=== PATIENT | female | born 1990 | race Caucasian/White ===

== ENCOUNTER → 2021-06-20 | Outpatient (CLI) | payer BC | LOC: M LAB 17:05 | PROVIDERS: ATTEND Pediatrics | DX: N91.1 Secondary amenorrhea (principal) ==

== ENCOUNTER → 2021-06-22 | Outpatient (CLI) | payer BC | LOC: M LAB 11:48 | PROVIDERS: ATTEND Pediatrics | DX: N91.1 Secondary amenorrhea (principal) ==

== ENCOUNTER → 2021-07-27 | Outpatient (CLI) | payer BC ==
[2021-07-27 15:36] LABS: HEMATOCRIT 35.2 % (36.0-47.0); HEMOGLOBIN 11.9 g/dl (12.0-15.5); MEAN CORPUSCULAR HEMOGLOBIN 30.1 pg (27.0-33.0); MEAN CORPUSCULAR HGB CONC 33.8 g/dl (32.0-36.5); MEAN CORPUSCULAR VOLUME 88.9 fl (80.0-96.0); PLATELET COUNT, AUTOMATED 231 10^3/uL (150-450); RED BLOOD COUNT 3.96 10^6/uL (4.00-5.40); WHITE BLOOD COUNT 6.4 10^3/uL (4.0-10.0)
[2021-07-27 16:32] LABS: HEPATITIS C VIRUS ABY INDEX 0.1 INDEX (<0.8); HIV 1&2 SCREEN CENTAUR NEGATIVE (NEGATIVE)
[2021-07-27 17:09] LABS: GC DNA AMPLIFICATION NEGATIVE (NEGATIVE)
== END ==
LOC: M PLALAB 14:02
PROVIDERS: ATTEND Advanced Practice Midwife
DX: Z34.81 Encounter for supervision of other normal pregnancy, first trimester (principal)

== ENCOUNTER → 2021-07-28 | Outpatient (REF) | payer BC | LOC: M SFHCWAGY 16:43 | PROVIDERS: ATTEND Advanced Practice Midwife | DX: Z34.81 Encounter for supervision of other normal pregnancy, first trimester (principal); A56.8 Sexually transmitted chlamydial infection of other sites ==

== ENCOUNTER → 2021-08-17 | Outpatient (CLI) | payer BC | LOC: M LAB 17:02 | PROVIDERS: ATTEND Advanced Practice Midwife | DX: Z34.81 Encounter for supervision of other normal pregnancy, first trimester (principal) ==

== ENCOUNTER → 2021-08-30 | Outpatient (REF) | payer BC ==
[2021-08-30 15:10] LABS: GC DNA AMPLIFICATION NEGATIVE (NEGATIVE)
== END ==
LOC: M SFHCWAGY 13:06
PROVIDERS: ATTEND Obstetrics & Gynecology
DX: O98.812 Other maternal infectious and parasitic diseases complicating pregnancy, second trimester (principal); Z3A.00 Weeks of gestation of pregnancy not specified

== ENCOUNTER → 2021-09-16 | Outpatient (CLI) | payer BC ==
[2021-09-16 14:03] LABS: APPEARANCE, URINE CLEAR (CLEAR); BACTERIA, URINE AUTO NEGATIVE (NEGATIVE); BILIRUBIN, URINE AUTO NEGATIVE (NEGATIVE); BLOOD, URINE BLOOD NEGATIVE (NEGATIVE); COLOR, URINE YELLOW (YELLOW); GLUCOSE, URINE (UA) AUTO NEGATIVE (NEGATIVE); KETONE, URINE AUTO NEGATIVE (NEGATIVE); LEUKOCYTE ESTERASE, URINE AUTO NEGATIVE (NEGATIVE); NITRITE, URINE AUTO NEGATIVE (NEGATIVE); PROTEIN, URINE AUTO NEGATIVE (NEGATIVE); RBC, URINE AUTO 0 /HPF (0-3); SPECIFIC GRAVITY URINE AUTO 1.011 (1.002-1.035); SQUAMOUS EPITHELIAL CELL UR AU 2 /HPF (0-6); UROBILINOGEN, URINE AUTO 0.2 mg/dL (0.0-2.0); WBC, URINE AUTO 0 /HPF (0-3)
== END ==
LOC: M PLALAB 11:24
PROVIDERS: ATTEND Advanced Practice Midwife
DX: R30.0 Dysuria (principal)

== ENCOUNTER 2021-11-21 23:14 | Outpatient (CLI) | payer BC ==
[~2021-11-21] VITALS: Ht 160 cm; Wt 74.4 kg
[2021-11-21 23:24] VITALS: BP 129/73
[2021-11-21] MEDS ORDERED: TYLE650T38 PO (23:32)
[2021-11-21] MEDS ORDERED: HOME MED LIST COMPLETE! XX SCH (23:35)
[2021-11-21] MEDS ORDERED: cefTRIAXone SOD 1 GM in D5W MINI-BAG PLUS 50 ML IV ONE (23:45)
[2021-11-21] MEDS ORDERED: LR 1,000 ML IV ONE (23:45)
[2021-11-22 00:59] LABS: APPEARANCE, URINE MANUAL CLOUDY (CLEAR)
[2021-11-22 01:00] LABS: BILIRUBIN, URINE MANUAL NEGATIVE (NEGATIVE); BLOOD URINE MANUAL POSITIVE (NEGATIVE); COLOR, URINE MANUAL PINK (YELLOW); GLUCOSE, URINE (UA) MANUAL NEGATIVE (NEGATIVE); KETONE, URINE MANUAL NEGATIVE (NEGATIVE); LEUKOCYTE ESTERASE, URINE MAN POSITIVE (NEGATIVE); NITRITE, URINE MANUAL NEGATIVE (NEGATIVE); PROTEIN, URINE MANUAL 2+ mg/dL (NEGATIVE); UROBILINOGEN, URINE MANUAL NORMAL (NORMAL)
[2021-11-22 01:03] VITALS: BP 121/61
[2021-11-22 01:18] LABS: RBC, URINE TNTC /hpf (0-3); SQUAMOUS EPITHELIAL CELL URINE SMALL AMOUNT /hpf (SMALL AMT)
[2021-11-22 01:19] LABS: BACTERIA, URINE SMALL AMOUNT
[2021-11-22 01:20] LABS: HYALINE CAST, URINE NONE SEEN /lpf (0-1); MUCUS, URINE SMALL AMOUNT (NEGATIVE); TRANSITIONAL EPI CELLS, URINE SMALL AMOUNT /hpf
[2021-11-22 01:46] LABS: BASO % 0.3 % (0.0-1.0); EOS # 0.1 10^3/uL (0.0-0.5); EOS % 1.3 % (0.0-3.0); HEMATOCRIT 29.7 % (36.0-47.0); HEMOGLOBIN 10.2 g/dl (12.0-15.5); LYMPH # 2.3 10^3/uL (1.5-5.0); LYMPH % 22.3 % (24.0-44.0); MEAN CORPUSCULAR HEMOGLOBIN 31.1 pg (27.0-33.0); MEAN CORPUSCULAR HGB CONC 34.3 g/dl (32.0-36.5); MEAN CORPUSCULAR VOLUME 90.5 fl (80.0-96.0); MONO # 0.7 10^3/uL (0.0-0.8); MONO % 6.7 % (2.0-8.0); NEUTROPHILS % 68.6 % (36.0-66.0); PLATELET COUNT, AUTOMATED 185 10^3/uL (150-450); RED BLOOD COUNT 3.28 10^6/uL (4.00-5.40); WHITE BLOOD COUNT 10.2 10^3/uL (4.0-10.0)
== END 2021-11-22 02:07 | disposition home or self-care (01) ==
LOC: M LDO 23:14
PROVIDERS: ATTEND Advanced Practice Midwife
DX: O26.852 Spotting complicating pregnancy, second trimester (principal); O26.892 Other specified pregnancy related conditions, second trimester; R25.2 Cramp and spasm; M54.50 Low back pain, unspecified; N13.30 Unspecified hydronephrosis; O35.1XX9 Maternal care for (suspected) chromosomal abnormality in fetus, other fetus; Q23.1 Congenital insufficiency of aortic valve; Z3A.26 26 weeks gestation of pregnancy
CPT/HCPCS: 36415; 59025; 76775; 81000; 85025; 87086; 96374; G0378; G0463; J0696

== ENCOUNTER → 2021-11-29 | Outpatient (CLI) | payer BC ==
[~2021-11-29] MED LIST: TYLE650T38 PO
[2021-11-29 13:51] LABS: HEMATOCRIT 33.9 % (36.0-47.0); HEMOGLOBIN 11.4 g/dl (12.0-15.5); MEAN CORPUSCULAR HGB CONC 33.6 g/dl (32.0-36.5); MEAN CORPUSCULAR VOLUME 92.1 fl (80.0-96.0); PLATELET COUNT, AUTOMATED 234 10^3/uL (150-450); RED BLOOD COUNT 3.68 10^6/uL (4.00-5.40); WHITE BLOOD COUNT 8.4 10^3/uL (4.0-10.0)
== END ==
LOC: M PLALAB 09:12
PROVIDERS: ATTEND Advanced Practice Midwife
DX: Z34.82 Encounter for supervision of other normal pregnancy, second trimester (principal)

== ENCOUNTER → 2021-12-06 | Outpatient (CLI) | payer BC | LOC: M WHC 10:08 | PROVIDERS: ATTEND Obstetrics & Gynecology | DX: O26.842 Uterine size-date discrepancy, second trimester (principal); Z3A.28 28 weeks gestation of pregnancy ==

== ENCOUNTER → 2022-01-26 | Outpatient (REF) | payer BC ==
[~2022-01-26] MED LIST changes: +PRENTAB9 PO; +UNIS25TA3 PO
== END ==
LOC: M SFHCWAGY 13:05
PROVIDERS: ATTEND Specialist
DX: Z36.85 Encounter for antenatal screening for Streptococcus B (principal); Z34.83 Encounter for supervision of other normal pregnancy, third trimester

== ENCOUNTER 2022-01-30 10:03 | Outpatient (CLI) | payer BC ==
[~2022-01-30] VITALS: Ht 160 cm; Wt 79.7 kg
[~2022-01-30 10:03] MED LIST changes: -PRENTAB9 PO; -UNIS25TA3 PO
[2022-01-30 10:20] VITALS: BP 127/74
[2022-01-30] MEDS ORDERED: UNIS25TA3 PO (10:24)
[2022-01-30] MEDS ORDERED: PRENTAB9 PO (10:24)
[2022-01-30 11:28] LABS: HEMATOCRIT 33.6 % (36.0-47.0); HEMOGLOBIN 11.4 g/dl (12.0-15.5); MEAN CORPUSCULAR HEMOGLOBIN 30.9 pg (27.0-33.0); MEAN CORPUSCULAR HGB CONC 33.9 g/dl (32.0-36.5); MEAN CORPUSCULAR VOLUME 91.1 fl (80.0-96.0); PLATELET COUNT, AUTOMATED 212 10^3/uL (150-450); RED BLOOD COUNT 3.69 10^6/uL (4.00-5.40); WHITE BLOOD COUNT 9.5 10^3/uL (4.0-10.0)
[2022-01-30 13:00] VITALS: BP 115/63
[2022-01-30 15:25] VITALS: BP 120/71
== END 2022-01-30 15:30 | disposition home or self-care (01) ==
LOC: M LDO 10:03
PROVIDERS: ATTEND Advanced Practice Midwife
DX: O26.893 Other specified pregnancy related conditions, third trimester (principal); R10.84 Generalized abdominal pain; W00.9XXA Unspecified fall due to ice and snow, initial encounter; Y92.9 Unspecified place or not applicable; Y99.9 Unspecified external cause status; Z3A.36 36 weeks gestation of pregnancy
CPT/HCPCS: 36415; 59025; 76815; 76820; 85027; 85460; G0378; G0463

== ENCOUNTER 2022-02-06 10:58 | Outpatient (CLI) | payer BC ==
[2022-02-06] VITALS (23 sets, daily range): BP systolic 92–140; BP diastolic 48–89
[~2022-02-06] VITALS: Ht 160 cm; Wt 80.6 kg
[~2022-02-06 10:58] MED LIST changes: +PRENTAB9 PO; +UNIS25TA3 PO
[2022-02-06] MEDS ORDERED: LACTATED RINGER'S 1000 ML IV ONE (11:05)
[2022-02-06] MEDS ORDERED: LR 1,000 ML IV SCH (11:05)
[2022-02-06] MEDS ORDERED: TUMS500C PO (11:19)
[2022-02-06] MEDS ORDERED: HOME MED LIST COMPLETE! XX SCH (11:20)
[2022-02-06] MEDS ORDERED: TERBUTALINE SULFATE 1 MG/ML VIAL (J3105) SC SCH (11:35)
[2022-02-06 12:06] LABS: HEMATOCRIT 33.5 % (36.0-47.0); HEMOGLOBIN 11.7 g/dl (12.0-15.5); MEAN CORPUSCULAR HEMOGLOBIN 31.7 pg (27.0-33.0); MEAN CORPUSCULAR HGB CONC 34.9 g/dl (32.0-36.5); MEAN CORPUSCULAR VOLUME 90.8 fl (80.0-96.0); PLATELET COUNT, AUTOMATED 189 10^3/uL (150-450); RED BLOOD COUNT 3.69 10^6/uL (4.00-5.40); WHITE BLOOD COUNT 9.9 10^3/uL (4.0-10.0)
[2022-02-06] MEDS ORDERED: ePHEDrine SULFATE 25 MG/5 ML(5MG/ML) SYRINGE IVP PRN (12:30)
[2022-02-06] MEDS ORDERED: EPIDURAL/PCA KEYS XX PRN (12:30)
[2022-02-06] MEDS ORDERED: FENTANYL/ROPIVACAINE/NACL BAG 100 ML EPIDURAL SCH (12:30)
[2022-02-06] MEDS ORDERED: NALOXONE INJ 0.4MG/1ML VIAL IV PRN (12:30)
[2022-02-06] MEDS ORDERED: diphenhydrAMINE 50MG/ML VIAL IV PRN (12:30)
[2022-02-06] MEDS ORDERED: LR 500 ML IV PRN (12:30)
[2022-02-06] MEDS ORDERED: ONDANSETRON 4MG 2ML VIAL IV PRN (12:30)
== END 2022-02-06 16:08 ==
LOC: M LDO 10:58
PROVIDERS: ATTEND Obstetrics & Gynecology
DX: O26.893 Other specified pregnancy related conditions, third trimester (principal); Q23.9 Congenital malformation of aortic and mitral valves, unspecified; Q24.9 Congenital malformation of heart, unspecified; O32.1XX9 Maternal care for breech presentation, other fetus; Z3A.37 37 weeks gestation of pregnancy
CPT/HCPCS: 59025; 59412; 76815; 85027; 86850; 86900; 86901; 96365; 96374; 96376; G0463; J2405; J3105

== ENCOUNTER 2022-02-22 06:21 | Inpatient (IN) | payer BC ==
[2022-02-22] VITALS (8 sets, daily range): BP systolic 121–142; BP diastolic 57–82
[~2022-02-22] VITALS: Ht 160 cm; Wt 80.9 kg
[~2022-02-22 06:21] MED LIST changes: +TUMS500C PO
[2022-02-22] MEDS ORDERED: LACTATED RINGER'S 1000 ML IV ONE (06:40)
[2022-02-22] MEDS ORDERED: LR 1,000 ML IV SCH ×4 (06:40→22:45)
[2022-02-22] MEDS ORDERED: BICITRA 30ML SOLN UDC PO ONE (06:40)
[2022-02-22] MEDS ORDERED: ceFAZolin SOD 2 GM in IV 1 EA IV ONE (06:40)
[2022-02-22 07:02] LABS: HEMATOCRIT 35.2 % (36.0-47.0); HEMOGLOBIN 12.1 g/dl (12.0-15.5); MEAN CORPUSCULAR HGB CONC 34.4 g/dl (32.0-36.5); MEAN CORPUSCULAR VOLUME 90.3 fl (80.0-96.0); PLATELET COUNT, AUTOMATED 215 10^3/uL (150-450); WHITE BLOOD COUNT 11.1 10^3/uL (4.0-10.0)
[2022-02-22] MEDS: PRENATAL VITAMINS CHEWABLE TABLET PO SCH (09:00)
[2022-02-22] MEDS ORDERED: BUPIVACAINE/DEXTROSE 0.75% 2ML AMP As Ordered ONE (09:32)
[2022-02-22] MEDS ORDERED: ePHEDrine SULFATE 25 MG/5 ML(5MG/ML) SYRINGE As Ordered ONE (10:00)
[2022-02-22] MEDS ORDERED: ONDANSETRON 4MG 2ML VIAL As Ordered ONE (10:04)
[2022-02-22] MEDS ORDERED: KETOROLAC 60MG 2ML VIAL As Ordered ONE (10:17)
[2022-02-22] MEDS ORDERED: PERCOCET 5MG/325MG TAB PO PRN ×2 (10:30)
[2022-02-22] MEDS ORDERED: SIMETHICONE 80MG CHEW TAB PO PRN (10:30)
[2022-02-22] MEDS ORDERED: ONDANSETRON 4MG 2ML VIAL IV PRN ×2 (10:30→10:45)
[2022-02-22] MEDS ORDERED: OXYTOCIN DRIP 30 UNITS in IV 1 EA IV SCH (10:30)
[2022-02-22] MEDS ORDERED: RHOGAM 300MCG (1500IU) INJ IM SCH (10:30)
[2022-02-22] MEDS ORDERED: DOCUSATE SODIUM 100MG CAPSULE PO PRN (10:30)
[2022-02-22] MEDS ORDERED: OXYTOCIN 30UNITS IN 0.9% NaCl 500ML IV BAG As Ordered ONE ×2 (10:33→10:52)
[2022-02-22] MEDS ORDERED: diphenhydrAMINE 50MG/ML VIAL IV PRN (10:45)
[2022-02-22] MEDS ORDERED: METOCLOPRAMIDE INJ 10MG/2ML VIAL IV PRN ×2 (10:45)
[2022-02-22] MEDS ORDERED: **NOTE PATIENT COMMENT** MISC XX SCH (10:45)
[2022-02-22] MEDS ORDERED: fentaNYL 100 MCG/2 ML INJECTION IV PRN (10:45)
[2022-02-22] MEDS ORDERED: MEPERIDINE INJ 25 MG/ML VIAL IV PRN (10:45)
[2022-02-22] MEDS ORDERED: NALOXONE INJ 0.4MG/1ML VIAL IV PRN ×2 (10:45)
[2022-02-22] MEDS ORDERED: oxyCODONE 5MG TAB PO PRN (10:45)
[2022-02-22] MEDS: SLF 3 ML SYR IV SCH ×2 (10:45→18:45)
[2022-02-22] MEDS ORDERED: MORPHINE PRES-FREE INJ 10 MG/10 ML VIAL As Ordered ONE (11:21)
[2022-02-22] MEDS: KETOROLAC 30 MG/ML 1ML VIAL IV SCH ×2 (16:08→22:06)
[2022-02-23 01:55] VITALS: BP 135/71
[2022-02-23] MEDS: SLF 3 ML SYR IV SCH (02:45)
[2022-02-23] MEDS: KETOROLAC 30 MG/ML 1ML VIAL IV SCH (04:06)
[2022-02-23 05:55] VITALS: BP 131/72
[2022-02-23 07:08] LABS: HEMATOCRIT 27.2 % (36.0-47.0); MEAN CORPUSCULAR HEMOGLOBIN 31.4 pg (27.0-33.0); MEAN CORPUSCULAR HGB CONC 34.2 g/dl (32.0-36.5); MEAN CORPUSCULAR VOLUME 91.9 fl (80.0-96.0); PLATELET COUNT, AUTOMATED 167 10^3/uL (150-450); RED BLOOD COUNT 2.96 10^6/uL (4.00-5.40); WHITE BLOOD COUNT 11.3 10^3/uL (4.0-10.0)
[2022-02-23 07:24] LABS: HEMOGLOBIN 9.3 g/dl (12.0-15.5)
[2022-02-23] MEDS: PRENATAL VITAMINS CHEWABLE TABLET PO SCH (07:50)
[2022-02-23 10:00] VITALS: BP 131/67
[2022-02-23] MEDS: IBUPROFEN 800 MG TAB PO SCH ×2 (12:11→19:52)
[2022-02-23 16:30] VITALS: BP 139/75
[2022-02-23 18:00] VITALS: BP 123/68
[2022-02-23 21:55] VITALS: BP 133/69
[2022-02-24 01:55] VITALS: BP 129/71
[2022-02-24] MEDS: IBUPROFEN 800 MG TAB PO SCH ×2 (04:04→11:42)
[2022-02-24 05:55] VITALS: BP 126/66
[2022-02-24] MEDS ORDERED: MEASLES,MUMPS,RUBELLA VACCINE INJ (MMR-II) SC.IMMUN ONE (09:00)
[2022-02-24 10:00] VITALS: BP 131/72
[2022-02-24] MEDS ORDERED: PERCOCET PO (11:23)
[2022-02-24] MEDS ORDERED: IBUP80TA PO (11:23)
== END 2022-02-24 13:20 | disposition home or self-care (01) | DRG 540 ==
LOC: M LDI 06:21 → M OBS 12:30
PROVIDERS: ADMIT Specialist; ATTEND Specialist
PROC: 10D00Z1 Extraction of Products of Conception, Low, Open Approach (ICD-10-PCS; principal; 2022-02-22 08:30)
DX: O32.1XX0 Maternal care for breech presentation, not applicable or unspecified (principal); Z37.0 Single live birth; Z3A.39 39 weeks gestation of pregnancy

== ENCOUNTER → 2022-07-07 | Outpatient (REF) | payer BC ==
[~2022-07-07] MED LIST changes: +IBUP80TA PO; +PERCOCET PO
== END ==
LOC: M LAB REF 17:06
PROVIDERS: ATTEND Pediatrics
DX: J02.9 Acute pharyngitis, unspecified (principal)

== ENCOUNTER → 2022-07-20 | Outpatient (REF) | payer BC ==
[2022-07-20 17:41] LABS: GC DNA AMPLIFICATION NEGATIVE (NEGATIVE)
== END ==
LOC: M SFHCWAGY 15:26
PROVIDERS: ATTEND Nurse Practitioner Family
DX: Z12.4 Encounter for screening for malignant neoplasm of cervix (principal); Z11.3 Encounter for screening for infections with a predominantly sexual mode of transmission
CPT/HCPCS: 87624; 87661; 87810; 87850; G0123

== ENCOUNTER → 2022-12-12 | Outpatient (CLI) | payer BC | LOC: M RAD 17:03 | PROVIDERS: ATTEND Pediatrics | DX: R05.9 Cough, unspecified (principal) ==

== ENCOUNTER → 2023-03-13 | Outpatient (CLI) | payer BC ==
[2023-03-13 18:18] LABS: BASO % 0.7 % (0.0-1.0); EOS # 0.1 10^3/uL (0.0-0.5); EOS % 2.2 % (0.0-3.0); HEMATOCRIT 38.3 % (36.0-47.0); HEMOGLOBIN 12.7 g/dl (12.0-15.5); LYMPH # 2.9 10^3/uL (1.5-5.0); LYMPH % 49.4 % (24.0-44.0); MEAN CORPUSCULAR HEMOGLOBIN 29.7 pg (27.0-33.0); MEAN CORPUSCULAR HGB CONC 33.2 g/dl (32.0-36.5); MEAN CORPUSCULAR VOLUME 89.5 fl (80.0-96.0); MONO # 0.5 10^3/uL (0.0-0.8); MONO % 7.8 % (2.0-8.0); NEUTROPHILS # 2.3 10^3/uL (1.5-8.5); NEUTROPHILS % 39.7 % (36.0-66.0); PLATELET COUNT, AUTOMATED 270 10^3/uL (150-450); RED BLOOD COUNT 4.28 10^6/uL (4.00-5.40); WHITE BLOOD COUNT 5.9 10^3/uL (4.0-10.0)
[2023-03-13 18:22] LABS: ERYTHROCYTE SEDIMENTATION RATE 11 mm/hr (0-20)
[2023-03-13 18:43] LABS: HEMOGLOBIN A1c 5.2 % (4.0-6.0)
[2023-03-13 18:48] LABS: ALKALINE PHOSPHATASE 72 U/L (46-116); ALT/SGPT 18 U/L (7.0-40); AST/SGOT 9 U/L (<34); BILIRUBIN,TOTAL 0.3 MG/DL (0.3-1.2); BLOOD UREA NITROGEN 19 MG/DL (9-23); CALCIUM LEVEL 9.1 MG/DL (8.5-10.1); CARBON DIOXIDE LEVEL 28 MMOL/L (20-31); CHLORIDE LEVEL 105 MMOL/L (98-107); CREATININE FOR GFR 0.79 MG/DL (0.55-1.30); GLOMERULAR FILTRATION RATE > 60.0 (>60); GLUCOSE, FASTING 92 MG/DL (60-100); POTASSIUM SERUM 4.2 MMOL/L (3.5-5.1); SODIUM LEVEL 140 MMOL/L (136-145)
[2023-03-13 18:49] LABS: FERRITIN 40.1 NG/ML (7.3-270.7); FREE T4 1.19 NG/DL (0.89-1.76); THYROID STIMULATING HORMONE 1.889 uIU/ML (0.55-4.78)
[2023-03-13 18:50] LABS: TOTAL 25(OH) VITAMIN D 41.7 NG/ML (20.0-100.0)
== END ==
LOC: M LAB 17:05
PROVIDERS: ATTEND Pediatrics
DX: R53.82 Chronic fatigue, unspecified (principal)

== ENCOUNTER → 2023-05-29 | Outpatient (REF) | payer BC | LOC: M LAB REF 12:27 | PROVIDERS: ATTEND Pediatrics | DX: A09 Infectious gastroenteritis and colitis, unspecified (principal) ==

== ENCOUNTER → 2023-08-29 | Outpatient (CLI) | payer BC | LOC: M PLALAB 12:18 | PROVIDERS: ATTEND Physician Assistant | DX: N91.2 Amenorrhea, unspecified (principal) ==

== ENCOUNTER → 2023-12-10 | Outpatient (CLI) | payer BC ==
[2023-12-11 13:25] LABS: PTT LUPUS TYPE ANTICOAG SCREEN 0.76 (0-1.20)
== END ==
LOC: M PLALAB 12:35
PROVIDERS: ATTEND Obstetrics & Gynecology
DX: N96 Recurrent pregnancy loss (principal)

== ENCOUNTER → 2024-05-31 | Outpatient (CLI) | payer BC ==
[2024-05-31 10:14] LABS: BASO % 0.8 % (0.0-1.0); EOS # 0.1 10^3/uL (0.0-0.5); EOS % 1.3 % (0.0-3.0); HEMATOCRIT 37.8 % (36.0-47.0); LYMPH # 1.7 10^3/uL (1.5-5.0); LYMPH % 42.7 % (24.0-44.0); MEAN CORPUSCULAR HEMOGLOBIN 30.2 pg (27.0-33.0); MEAN CORPUSCULAR HGB CONC 34.4 g/dl (32.0-36.5); MEAN CORPUSCULAR VOLUME 87.7 fl (80.0-96.0); MONO # 0.3 10^3/uL (0.0-0.8); MONO % 6.8 % (2.0-8.0); NEUTROPHILS # 1.9 10^3/uL (1.5-8.5); NEUTROPHILS % 48.4 % (36.0-66.0); PLATELET COUNT, AUTOMATED 271 10^3/uL (150-450); RED BLOOD COUNT 4.31 10^6/uL (4.00-5.40)
[2024-05-31 10:19] LABS: ERYTHROCYTE SEDIMENTATION RATE 8 mm/hr (0-20)
[2024-05-31 10:32] LABS: C REACTIVE PROTEIN QUANTITATIV < 0.50 MG/DL (<1.0)
[2024-05-31 10:33] LABS: CHOLESTEROL LEVEL 157 MG/DL (<200); CHOLESTEROL RISK RATIO 3.01 (<5); HDL CHOLESTEROL 52.1 MG/DL (>40); LDL CHOLESTEROL 96.5 MG/DL (<100); NON-HDL-C 104.9 MG/DL; TRIGLYCERIDES LEVEL 42 MG/DL (<150)
[2024-05-31 10:36] LABS: ESTRADIOL < 19.0 PG/ML; RHEUMATOID FACTOR QUANT < 3.5 IU/ML (<14)
[2024-05-31 10:37] LABS: FOLLICLE STIMULATING HORMONE 9.8 mIU/ML; FREE T4 1.28 NG/DL (0.89-1.76); LUTEINIZING HORMONE 5.3 mIU/ML; PROGESTERONE 0.59 NG/ML
[2024-06-03 14:46] LABS: RUBEOLA IgG ANTIBODY > 300.00 AU/mL (>16.49)
== END ==
LOC: M LAB 09:13
PROVIDERS: ATTEND Family Medicine
DX: Z01.84 Encounter for antibody response examination (principal); N97.9 Female infertility, unspecified; Z13.29 Encounter for screening for other suspected endocrine disorder; Z13.220 Encounter for screening for lipoid disorders; M25.561 Pain in right knee

== ENCOUNTER → 2024-06-25 | Outpatient (CLI) | payer BC | LOC: M PLALAB 11:59 | PROVIDERS: ATTEND Physician Assistant | DX: N91.2 Amenorrhea, unspecified (principal) ==

== ENCOUNTER → 2024-07-01 | Outpatient (CLI) | payer BC | LOC: M LAB 07:30 | PROVIDERS: ATTEND Obstetrics & Gynecology Reproductive Endocrinology | DX: N96 Recurrent pregnancy loss (principal) ==

== ENCOUNTER → 2024-07-03 | Outpatient (CLI) | payer BC | LOC: M LAB 07:09 | PROVIDERS: ATTEND Physician Assistant | DX: N91.1 Secondary amenorrhea (principal) ==

== ENCOUNTER → 2024-07-03 | Outpatient (CLI) | payer BC | LOC: M LAB 07:18 | PROVIDERS: ATTEND Physician Assistant | DX: N96 Recurrent pregnancy loss (principal) ==

== ENCOUNTER → 2024-07-07 | Outpatient (CLI) | payer BC | LOC: M LAB 12:12 | PROVIDERS: ATTEND Physician Assistant | DX: N91.2 Amenorrhea, unspecified (principal) ==

== ENCOUNTER → 2024-09-15 | Outpatient (CLI) | payer BC | LOC: M WHC 14:48 | PROVIDERS: ATTEND Obstetrics & Gynecology | DX: N64.4 Mastodynia (principal) ==

== ENCOUNTER → 2024-10-15 | Outpatient (CLI) | payer BC | LOC: M WHC 11:39 | PROVIDERS: ATTEND Advanced Practice Midwife | DX: O32.1XX0 Maternal care for breech presentation, not applicable or unspecified (principal); Z36.2 Encounter for other antenatal screening follow-up; Z3A.19 19 weeks gestation of pregnancy; N64.4 Mastodynia ==

== ENCOUNTER → 2024-11-27 | Outpatient (CLI) | payer BC ==
[2024-11-27 10:22] LABS: PLATELET COUNT, AUTOMATED 252 10^3/uL (150-450)
[2024-11-27 10:46] LABS: GLUCOSE CHALLENGE TEST 1 HOUR 100 MG/DL (LESS THAN 140)
[2024-11-27 11:15] LABS: HIV 1&2 SCREEN NEGATIVE (NEGATIVE)
[2024-11-27 11:22] LABS: HEPATITIS C VIRUS ABY INDEX 0.13 INDEX (<0.8)
[2024-11-27 12:06] LABS: Trichomonas vaginalis (AMP) NOT DETECTED (NEGATIVE)
[2024-11-27 12:29] LABS: GC DNA AMPLIFICATION NEGATIVE (NEGATIVE)
== END ==
LOC: M PLALAB 07:37
PROVIDERS: ATTEND Advanced Practice Midwife
DX: Z34.80 Encounter for supervision of other normal pregnancy, unspecified trimester (principal)

== ENCOUNTER → 2025-02-03 | Outpatient (REF) | payer BC | LOC: M SFHCWAGY 13:23 | PROVIDERS: ATTEND Advanced Practice Midwife | DX: Z36.85 Encounter for antenatal screening for Streptococcus B (principal); Z3A.35 35 weeks gestation of pregnancy ==